=== PATIENT | female | born 1955 | race Caucasian/White ===

== ENCOUNTER → 2016-04-11 | Outpatient (CLI) | payer MEDICAID ==
[~2016-04-11] MED LIST: CIPRO 500MG TA500 MG PO; LEVAQUIN500 MG PO; MECLIZINE HYDRO25 MG PO; MEDROL 4MG. DOSE4 MG PO; PREDNISONE 10MG10 MG PO; SYNTHROID 0.00.05 MG PO; TESSALON PERLE100 MG PO; TESSALON PERLE200 MG PO; VENTOLIN H0.09 MG/AC IH
--- NOTE | 2016-04-21 21:25 | RADIOLOGY REPORT PS360 ---
DEXA SCAN.-BONE DENSITY STUDY HIPS AND LUMBAR SPINE HISTORY: Postmenopausal female 61-year-old postmenopausal female on evista/ reloxifene previous remote history of broken wrist. TECHNIQUE: DEXA scan hip and lumbar spine The most complete data summary and color graphic presentation of the today's ( and any prior ) DEXA findings are available in PACS. Definition and treatment guidelines included. COMPARISON August 2015 LUMBAR SPINE: Osteoporosis L4 vertebral body demonstrates the lowest T score -4.6 with BMD0.644 g/cm sq Overall mean lumbar L1-L4 T score -3.8 with BMD0.723 g/cm sq . August 2015 prior DEXA the mean T score -3.8 with BMD was0.7-8g/cm sq Thus when comparing today's study to the prior exam there's been a 0.5% decrease mean bone density at the lumbar spine. Which appears to be anticipated. HIPS: Osteoporosis Femoral neck density is best predictor of hip fracture risk . Right femoral neck demonstrates the lowest T score -3.2 with BMD0.598 g/cm sq . Left femoral neck T score -2.9 Averaging all yields today's Hip Mean T score -2.7 with BMD0.674 g/cm sq . August 2015 T score -2.8 with mean BMD0.66 g/cm sq Thus this reflects a 2.1% increasein overall mean bone density at the hips in the interval. IMPRESSION 1. LUMBAR SPINE: Pronounced Osteoporosis Overall T score -3.8 Lowest T-score at L4 = -4.6 2. HIPS: Osteoporosis . Overall T score -2.7 Right femoral neck T score -3.2 WHO criteria for post-menopausal, Women: Normal: T-score at or above -1 SD Osteopenia: T-score between -1 and -2.5 SD Osteoporosis: T-score at or below -2.5 SD
== END ==
LOC: RAD 09:33
DX: M81.0 Age-related osteoporosis without current pathological fracture (principal)

== ENCOUNTER → 2016-11-10 | Outpatient (CLI) | payer MEDICAID ==
--- NOTE | 2016-11-10 10:04 | RADIOLOGY REPORT PS360 ---
EXAM: Barium swallow/esophagram. INDICATION: ORDERING PHYSICIAN: Steven Price MD PATIENT AGE: 61 years COMPARISON: None TECHNIQUE: In the upright position the patient was observed to swallow barium in both the AP and lateral view. The cervical esophagus was examined under fluoroscopy with images obtained. The patient was then placed prone in the right anterior oblique position and was observed to swallow barium with Valsalva technique . FLUOROSCOPY TIME: 1 minute and 3 seconds FINDINGS: There was no evidence of aspiration. There was normal peristalsis. No filling defects or mucosal abnormalities. No masses or strictures. There is a mid esophageal diverticulum. No hernia evident. Reflux was not demonstrated during the exam. IMPRESSION: Small mid esophageal diverticulum otherwise negative barium swallow
--- NOTE | 2016-11-10 10:28 | RADIOLOGY REPORT PS360 ---
BONE DENSITOMETRY(HIP:LT SPINE HISTORY: POST MENOPAUSAL,GERD,HHD,COPD ORDERING PHYSICIAN: Steven Price MD PATIENT AGE: 61 years COMPARISON: 04/11/2016 FINDINGS: The BMD measured at the L1-L4 is 0.766 g percent meters squared with a T score of -3.4 consistent with osteoporosis. L-spine density has increased by 6% compared to the previous study. Mean hip density is 0.681 g/sq cm with a T score of -2.6 consistent with osteoporosis essentially unchanged. Fracture risk is high and treatment is recommended if not already prescribed. Recommend follow-up exam October 2017. IMPRESSION: Osteoporosis
== END ==
LOC: RAD 10-27 10:00
DX: K21.9 Gastro-esophageal reflux disease without esophagitis (principal); I11.9 Hypertensive heart disease without heart failure; R60.9 Edema, unspecified; J44.9 Chronic obstructive pulmonary disease, unspecified; M81.0 Age-related osteoporosis without current pathological fracture; Z78.0 Asymptomatic menopausal state

== ENCOUNTER → 2016-12-08 | Outpatient (CLI) | payer MEDICAID ==
--- NOTE | 2016-12-09 13:16 | RADIOLOGY REPORT PS360 ---
US BREAST-RT COMPLETE W/AXILLA COMPARISON: INDICATION: Breast evaluation TECHNIQUE: Routine images FINDINGS: There is a right breast implant present. A 4 mm cyst is present at 12:00. 8 2-mm cyst is present at 1:00, a complex 5 mm cyst at 6:00 and small nodes in the axilla. No solid lesions demonstrated. IMPRESSION: Right breast cysts with implant present . BI-RADS Category 0. Incomplete Recommendation: Recommend completing breast evaluation with mammography or alternatively MRI of the breast without and with contrast Ultrasound is not adequate for breast screening especially in a patient with implant. Consider mammography for further evaluation
--- NOTE | 2016-12-09 13:24 | RADIOLOGY REPORT PS360 ---
US BREAST-LT COMPLETE W/AXILLA COMPARISON: 09/11/2015 INDICATION: Implant leak, follow-up previous ultrasound. ORDERING PHYSICIAN: Angel Monreal MD PATIENT AGE: 61 years TECHNIQUE: Routine ultrasound FINDINGS: Irregular hypoechoic lesion is present at 12:00 measuring 16 x 14 mm. This previously measured 30 x 12 mm. There has been likely resolution of the cystic component of the nodule along its lateral margin. There is residual component that is present at this time is hypoechoic macrolobulated and contains low-level internal echoes with some enhanced through transmission of sound and may represent complex cyst or fibroadenoma.. There is been near complete deflation of the left implant with a minimal amount of fluid along the inferior aspect of the implant. There is a 3 mm cyst at 1:00 and 3 mm cyst at 3:00 and 3 mm cyst at 9:00. IMPRESSION: 1. Deflated left breast implant. 2. 16 x 14 mm complex lesion at 12:00. Although the lesion is smaller in size, a solid component persist and may be due to complex part of the cyst or even fibroadenoma. Evaluation is incomplete without mammography. Alternatively, MRI could be performed to further evaluate this lesion. BI-RADS CATEGORY: 0_Incomplete: Need additional imaging RECOMMENDED FOLLOWUP: Left mammogram or alternatively MRI on dedicated breast unit without and with contrast the further evaluate the solid appearing nodule at 12:00 (A letter has been sent to the patient regarding results of the study.)
== END ==
LOC: RAD 08:42
DX: R92.8 Other abnormal and inconclusive findings on diagnostic imaging of breast (principal)